=== PATIENT | female | born 1965 | race Caucasian/White ===

== ENCOUNTER → 2018-03-19 | Outpatient (CLI) | payer BC ==
[~2018-03-19] MED LIST: NO HOME MEDICATIONS
== END ==
LOC: MC.RAD 12:49
DX: R92.2 Inconclusive mammogram (principal); Z80.3 Family history of malignant neoplasm of breast

== ENCOUNTER → 2021-09-17 | Emergency (ER) | payer BC ==
[~2021-09-17] VITALS: Ht 165.1 cm; Wt 58.2 kg
[~2021-09-17] MED LIST changes: +ZOFRAN ODT4 MG PO
[2021-09-17 03:18] VITALS: TEMP 99.2
[2021-09-17 05:51] VITALS: BP 116/74; PULSE 91
== END ==
LOC: COL.ER 03:01
DX: U07.1 COVID-19 (principal); I10 Essential (primary) hypertension